=== PATIENT | male | born 1955 | race Hispanic/Latino ===

== ENCOUNTER 2019-05-02 17:33 | Emergency (ER) | payer SELFPAY ==
[~2019-05-02] VITALS: Ht 185.4 cm; Wt 117.9 kg
--- OUTSIDE RECORDS SUMMARY | 2019-05-02 17:35 | XMS REPORT ---
[facility] Address Unknown Phone Unavailable Care Team Providers Care Pet Care Attendant Name Role Phone Unavailable Unavailable Problems This patient has no known problems. Allergies, Adverse Reactions, Alerts This patient has no known allergies or adverse reactions. Medications This patient has no known medications. Encounters Start Date/Time End Date/Time Encounter Type Admission Type Attending [facility] Care Department Encounter ID 2019-02-26 22:29:03 Inpatient [facility] [id number] 2019-02-23 11:49:38 Inpatient [facility] [id number] 2018-10-22 06:24:57 Inpatient [facility] [id number] 2018-10-20 23:13:11 Inpatient [facility] [id number] 2018-10-18 14:36:21 Inpatient [facility] [id number] 2018-10-18 14:00:08 Inpatient [facility] [id number] 2018-10-18 13:24:35 Inpatient [facility] [id number] 2018-10-17 21:58:55 Inpatient [facility] [id number] 2018-10-16 21:47:23 Inpatient [facility] [id number] 2018-05-16 11:37:17 Inpatient [facility] [id number] 2017-10-25 12:58:00 Inpatient [facility] [id number] 2017-10-16 00:26:17 Inpatient [facility] [id number] 2017-10-15 00:00:00 Inpatient [facility] [id number] 2017-10-15 00:00:00 Inpatient [facility] [id number] 2017-10-14 15:57:42 Inpatient [facility] [id number] 2017-10-12 23:29:40 Inpatient [facility] [id number] 2017-10-11 15:54:45 Inpatient [facility] [id number] 2017-10-11 00:12:23 Inpatient [facility] [id number] 2017-10-10 00:14:31 Inpatient [facility] [id number] 2017-10-08 23:16:54 Inpatient [facility] [id number] 2017-10-08 12:09:03 Inpatient [facility] [id number] 2017-10-08 00:00:00 Inpatient [facility] [id number] 2017-10-08 00:00:00 Inpatient [facility] [id number] 2017-10-08 00:00:00 Inpatient [facility] [id number] 2017-10-08 00:00:00 Inpatient [facility] [id number] 2017-02-04 18:16:47 Inpatient [facility] [id number] 2019-05-27 00:00:00 2019-05-27 00:00:00 Outpatient [facility] [id number] 2019-05-01 00:00:00 2019-05-01 00:00:00 Outpatient [facility] [id number] 2019-04-27 00:00:00 2019-04-27 00:00:00 Outpatient [facility] [id number] 2019-04-15 22:30:34 2019-04-15 22:30:34 Emergency [facility] [id number] 2019-04-15 21:48:28 2019-04-15 21:48:28 Emergency [facility] [id number] 2019-04-10 13:35:51 2019-04-10 13:35:51 Outpatient [facility] [id number] 2019-04-03 11:15:37 2019-04-03 11:15:37 Outpatient [facility] [id number] 2019-03-13 00:00:00 2019-03-13 00:00:00 Outpatient [facility] [id number] 2019-03-06 00:00:00 2019-03-06 00:00:00 Outpatient [facility] [id number] 2019-02-21 06:55:17 2019-02-21 06:55:17 Outpatient [facility] [id number] 2019-02-20 15:43:46 2019-02-20 15:43:46 Emergency [facility] [id number] 2019-02-20 13:51:30 2019-02-20 13:51:30 Inpatient [facility] [id number] 2019-01-16 00:00:00 2019-01-16 00:00:00 Outpatient [facility] [id number] 2018-12-10 10:02:40 2018-12-10 10:02:40 Outpatient [facility] [id number] 2018-11-28 00:00:00 2018-11-28 00:00:00 Outpatient [facility] [id number] 2018-11-20 00:00:00 2018-11-20 00:00:00 Outpatient [facility] [id number] 2018-10-16 06:24:32 2018-10-16 06:24:32 Outpatient [facility] [id number] 2018-10-15 19:00:24 2018-10-15 19:00:24 Outpatient [facility] [id number] 2018-10-15 12:40:45 2018-10-15 12:40:45 Emergency [facility] [id number] 2018-10-15 11:11:54 2018-10-15 11:11:54 Inpatient [facility] [id number] 2018-10-07 00:00:00 2018-10-07 00:00:00 Outpatient [facility] [id number] 2018-09-17 00:00:00 2018-09-17 00:00:00 Outpatient [facility] [id number] 2018-08-21 00:00:00 2018-08-21 00:00:00 Outpatient [facility] [id number] 2018-08-12 00:00:00 2018-08-12 00:00:00 Outpatient [facility] [id number] 2018-08-11 15:32:23 2018-08-11 15:32:23 Outpatient [facility] [id number] 2018-08-11 14:57:37 2018-08-11 14:57:37 Outpatient [facility] [id number] 2018-08-11 14:03:16 2018-08-11 14:03:16 Outpatient [facility] [id number] 2018-07-28 00:00:00 2018-07-28 00:00:00 Outpatient [facility] [id number] 2018-07-04 00:00:00 2018-07-04 00:00:00 Outpatient [facility] [id number] 2018-06-20 00:00:00 2018-06-20 00:00:00 Outpatient [facility] [id number] 2018-06-10 21:16:40 2018-06-10 21:16:40 Emergency [facility] [id number] 2018-06-10 19:36:50 2018-06-10 19:36:50 Emergency [facility] [id number] 2018-06-10 17:17:34 2018-06-10 17:17:34 Emergency [facility] [id number] 2018-06-06 00:00:00 2018-06-06 00:00:00 Outpatient [facility] [id number] 2018-06-04 10:19:36 2018-06-04 10:19:36 Outpatient [facility] [id number] 2018-06-04 00:00:00 2018-06-04 00:00:00 Outpatient [facility] [id number] 2018-06-04 00:00:00 2018-06-04 00:00:00 Outpatient [facility] [id number] 2018-05-23 00:00:00 2018-05-23 00:00:00 Outpatient [facility] [id number] 2018-05-22 00:00:00 2018-05-22 00:00:00 Outpatient [facility] [id number] 2018-05-22 00:00:00 2018-05-22 00:00:00 Outpatient [facility] [id number] 2018-05-21 00:00:00 2018-05-21 00:00:00 Outpatient [facility] [id number] 2018-05-19 15:47:45 2018-05-19 15:47:45 Outpatient [facility] [id number] 2018-05-19 00:00:00 2018-05-19 00:00:00 Outpatient [facility] [id number] 2018-05-13 11:52:20 2018-05-13 11:52:20 Emergency [facility] [id number] 2018-05-13 09:38:58 2018-05-13 09:38:58 Inpatient [facility] [id number] 2018-05-06 00:00:00 2018-05-06 00:00:00 Outpatient [facility] [id number] 2018-04-29 07:24:07 2018-04-29 07:24:07 Outpatient [facility] [id number] 2018-04-29 07:24:00 2018-04-29 07:24:00 Outpatient [facility] [id number] 2018-04-28 19:41:10 2018-04-28 19:41:10 Outpatient [facility] [id number] 2018-04-28 18:49:38 2018-04-28 18:49:38 Outpatient [facility] [id number] 2018-04-28 13:48:14 2018-04-28 13:48:14 Outpatient [facility] [id number] 2018-04-08 00:00:00 2018-04-08 00:00:00 Outpatient [facility] [id number] 2018-02-23 05:39:40 2018-02-23 05:39:40 Emergency [facility] [id number] 2018-02-18 11:13:23 2018-02-18 11:13:23 Outpatient [facility] [id number] 2018-01-22 00:00:00 2018-01-22 00:00:00 Outpatient [facility] [id number] 2018-01-21 00:00:00 2018-01-21 00:00:00 Outpatient [facility] [id number] 2018-01-16 11:15:57 2018-01-16 11:15:57 Outpatient [facility] [id number] 2018-01-14 05:57:20 2018-01-14 05:57:20 Outpatient [facility] [id number] 2018-01-13 00:00:00 2018-01-13 00:00:00 Outpatient [facility] [id number] 2018-01-06 08:10:43 2018-01-06 08:10:43 Outpatient [facility] [id number] 2018-01-06 00:00:00 2018-01-06 00:00:00 Outpatient [facility] [id number] 2017-12-31 00:00:00 2017-12-31 00:00:00 Outpatient [facility] [id number] 2017-12-30 00:00:00 2017-12-30 00:00:00 Outpatient [facility] [id number] 2017-12-03 00:00:00 2017-12-03 00:00:00 Outpatient [facility] [id number] 2017-11-27 12:10:48 2017-11-27 12:10:48 Outpatient [facility] [id number] 2017-11-27 08:53:13 2017-11-27 08:53:13 Outpatient [facility] [id number] 2017-11-27 00:00:00 2017-11-27 00:00:00 Outpatient [facility] [id number] 2017-11-21 15:58:16 2017-11-21 15:58:16 Outpatient [facility] [id number] 2017-11-20 10:03:22 2017-11-20 10:03:22 Outpatient [facility] [id number] 2017-11-20 00:00:00 2017-11-20 00:00:00 Outpatient [facility] [id number] 2017-11-15 11:59:47 2017-11-15 11:59:47 Outpatient [facility] [id number] 2017-11-07 16:56:54 2017-11-07 16:56:54 Outpatient [facility] [id number] 2017-11-07 00:00:00 2017-11-07 00:00:00 Outpatient [facility] [id number] 2017-11-01 00:00:00 2017-11-01 00:00:00 Outpatient [facility] [id number] 2017-11-01 00:00:00 2017-11-01 00:00:00 Outpatient [facility] [id number] 2017-10-31 16:36:33 2017-10-31 16:36:33 Outpatient [facility] [id number] 2017-10-25 00:00:00 2017-10-25 00:00:00 Outpatient [facility] [id number] 2017-10-22 07:35:36 2017-10-22 07:35:36 Outpatient [facility] [id number] 2017-10-21 12:27:56 2017-10-21 12:27:56 Emergency [facility] [id number] 2017-10-21 11:36:08 2017-10-21 11:36:08 Inpatient [facility] [id number] 2017-10-15 14:36:11 2017-10-15 00:00:00 Inpatient [facility] [id number] 2017-10-15 01:47:48 2017-10-15 00:00:00 Inpatient [facility] [id number] 2017-10-15 00:00:00 2017-10-15 00:00:00 Outpatient [facility] [id number] 2017-10-15 00:00:00 2017-10-15 00:00:00 Outpatient [facility] [id number] 2017-10-14 10:49:27 2017-10-14 00:00:00 Inpatient [facility] [id number] 2017-10-13 23:17:36 2017-10-13 00:00:00 Inpatient [facility] [id number] 2017-10-13 15:04:28 2017-10-13 00:00:00 Inpatient [facility] [id number] 2017-10-12 00:09:06 2017-10-12 00:00:00 Inpatient [facility] [id number] 2017-10-11 10:01:34 2017-10-11 00:00:00 Inpatient [facility] [id number] 2017-10-10 08:14:44 2017-10-10 00:00:00 [facility]patient [facility] [id number] 2017-10-09 22:10:40 2017-10-09 00:00:00 Inpatient [facility] [id number] 2017-10-09 19:04:36 2017-10-09 00:00:00 Inpatient [facility] [id number] 2017-10-09 12:36:03 2017-10-09 00:00:00 Inpatient [facility] [id number] 2017-10-08 22:57:18 2017-10-08 00:00:00 Inpatient [facility] [id number] 2017-10-08 19:46:28 2017-10-08 00:00:00 Inpatient [facility] [id number] 2017-10-08 19:45:46 2017-10-08 00:00:00 Inpatient [facility] [id number] 2017-10-08 02:22:12 2017-10-08 00:00:00 Inpatient [facility] [id number] 2017-10-07 21:02:12 2017-10-07 21:02:12 Emergency [facility] [id number] 2017-10-07 20:32:47 2017-10-07 20:32:47 Inpatient [facility] [id number] 2017-10-07 12:26:26 2017-10-07 00:00:00 Inpatient [facility] [id number] 2017-10-07 00:00:00 2017-10-07 00:00:00 Outpatient [facility] [id number] 2017-10-01 21:40:36 2017-10-01 21:40:36 Inpatient [facility] [id number] 2017-10-01 13:37:19 2017-10-01 13:37:19 Emergency [facility] [id number] 2017-09-25 00:00:00 2017-09-25 00:00:00 Outpatient [facility] [id number] 2017-09-24 10:03:29 2017-09-24 10:03:29 Outpatient [facility] [id number] 2017-09-24 08:15:26 2017-09-24 08:15:26 Outpatient [facility] [id number] 2017-09-24 00:00:00 2017-09-24 00:00:00 Outpatient [facility] [id number] 2017-09-16 00:00:00 2017-09-16 00:00:00 Outpatient [facility] [id number] 2017-09-16 00:00:00 2017-09-16 00:00:00 Outpatient [facility] [id number] 2017-09-13 18:40:45 2017-09-13 18:40:45 Outpatient [facility] [id number] 2017-09-10 10:14:59 2017-09-10 10:14:59 Outpatient [facility] [id number] 2017-09-08 07:08:53 2017-09-08 00:00:00 Inpatient [facility] [id number] 2017-09-04 15:11:40 2017-09-04 00:00:00 Inpatient [facility] [id number] 2017-09-04 12:43:45 2017-09-04 00:00:00 Inpatient [facility] [id number] 2017-09-03 09:14:45 2017-09-03 09:14:45 Outpatient [facility] [id number] 2017-09-03 07:41:01 2017-09-03 07:41:01 Outpatient [facility] [id number] 2017-09-02 15:54:52 2017-09-02 15:54:52 Emergency [facility] [id number] 2017-09-02 13:35:43 2017-09-02 13:35:43 Inpatient [facility] [id number] 2017-09-02 00:00:00 2017-09-02 00:00:00 Outpatient [facility] [id number] 2017-09-02 00:00:00 2017-09-02 00:00:00 Outpatient [facility] [id number] 2017-08-21 10:30:17 2017-08-21 10:30:17 Emergency [facility] [id number] 2017-08-21 10:13:42 2017-08-21 10:13:42 Emergency [facility] [id number] 2017-08-15 08:35:29 2017-08-15 08:35:29 Outpatient [facility] [id number] 2017-08-06 07:43:47 2017-08-06 07:43:47 Outpatient [facility] [id number] 2017-07-24 09:37:29 2017-07-24 09:37:29 Outpatient [facility] [id number] 2017-07-24 00:00:00 2017-07-24 00:00:00 Outpatient [facility] [id number] 2017-07-14 22:38:43 2017-07-14 22:38:43 Emergency [facility] [id number] 2017-07-14 18:03:48 2017-07-14 18:03:48 Emergency [facility] [id number] 2017-07-14 11:01:17 2017-07-14 11:01:17 Emergency [facility] [id number] 2017-06-06 15:19:43 2017-06-06 15:19:43 Outpatient [facility] [id number] 2017-06-04 09:55:47 2017-06-04 09:55:47 Outpatient [facility] [id number] 2017-05-28 09:52:20 2017-05-28 09:52:20 Outpatient [facility] [id number] 2017-05-22 06:51:03 2017-05-22 06:51:03 Outpatient [facility] [id number] 2017-05-21 09:35:38 2017-05-21 09:35:38 Outpatient [facility] [id number] 2017-05-08 00:00:00 2017-05-08 00:00:00 Outpatient [facility] [id number] 2017-05-02 09:33:32 2017-05-02 09:33:32 Outpatient [facility] [id number] 2017-04-18 09:02:49 2017-04-18 09:02:49 Outpatient [facility] [id number] 2017-04-16 00:00:00 2017-04-16 00:00:00 Outpatient [facility] [id number] 2017-04-11 10:16:12 2017-04-11 10:16:12 Outpatient [facility] [id number] 2017-04-11 08:37:34 2017-04-11 08:37:34 Outpatient [facility] [id number] 2017-04-05 08:19:09 2017-04-05 08:19:09 Outpatient [facility] [id number] 2017-04-02 15:55:12 2017-04-02 00:00:00 Inpatient [facility] [id number] 2017-04-01 13:19:08 2017-04-01 00:00:00 Inpatient [facility] [id number] 2017-04-01 11:48:02 2017-04-01 00:00:00 Inpatient [facility] [id number] 2017-04-01 11:01:30 2017-04-01 00:00:00 Inpatient [facility] [id number] 2017-04-01 00:00:00 2017-04-01 00:00:00 Outpatient [facility] [id number] 2017-04-01 00:00:00 2017-04-01 00:00:00 Outpatient [facility] [id number] 2017-03-30 13:34:58 2017-03-30 13:34:58 Outpatient [facility] [id number] 2017-03-29 11:18:57 2017-03-29 11:18:57 Inpatient [facility] [id number] 2017-03-29 10:34:06 2017-03-29 10:34:06 Emergency [facility] [id number] 2017-03-29 00:00:00 2017-03-29 00:00:00 Emergency [facility] [id number] 2017-03-27 00:00:00 2017-03-27 00:00:00 Outpatient [facility] [id number] 2017-03-20 00:00:00 2017-03-20 00:00:00 Outpatient [facility] [id number] 2017-03-15 01:56:23 2017-03-15 00:00:00 Inpatient [facility] [id number] 2017-03-14 14:07:39 2017-03-14 14:07:39 Emergency [facility] [id number] 2017-03-14 13:35:00 2017-03-14 13:35:00 Inpatient [facility] [id number] 2017-03-07 07:11:27 2017-03-07 07:11:27 Outpatient [facility] [id number] 2016-11-22 07:26:11 2016-11-22 07:26:11 Outpatient [facility] [id number] 2016-11-22 00:00:00 2016-11-22 00:00:00 Outpatient [facility] [id number] 2016-09-12 00:00:00 2016-09-12 00:00:00 Outpatient [facility] [id number] Results Test Description Test Time Test Comments Text Results Atomic Results Result Comments XR Chest 1 View Frontal 2018-11-18 11:17:31 Patient: SHIN HEATH Date/Time11/18/2018 11:12 CSTReason for ExamDifficulty breathingReportEXAM: CHEST ONE VIEWINDICATION: Difficulty breathingCOMPARISON: April 08, 2018TECHNIQUE: AP view of the chest.FINDINGS:The cardiomediastinal silhouette is normal. Mild congestive changes bilaterally. No pneumothorax or pleural effusion is identified. The osseous structures are unremarkable.IMPRESSION:Mild congestive changes bilaterally.LOCATION: R16 Final Dictated by: MD Joe Melanie CDictated DT/TM: 11/18/2018 11:17 amSigned by: MD Joe Melanie CSigned (Electronic Signature): 11/18/2018 11:[address] Brain/Head w/o Contrast 2018-11-18 10:38:47 Patient: SHIN HEATH Date/Time11/18/2018 10:32 CSTReason for ExamHeadache(s)ReportCT HEAD WITHOUT CONTRASTCLINICAL HISTORY: Headache(s)COMPARISON: None available.TECHNIQUE: 5 mm axial images of the brain were obtained without contrast. Coronal and sagittal reformats were obtained. One or more of the following dose reduction techniques were used: Automated exposure control, adjustment of the mA and/or kV according to patient size, and/or utilization of iterative reconstruction technique.FINDINGS: There is no acute intracranial hemorrhage or extra-axial collection. The pak-white matter differentiation is well-preserved without evidence of edema or acute infarct. An old lacunar infarct is seen in the left basal ganglia. There is no hydr ocephalus, midline shift, or mass effect.The cranial vault and skull base are intact. The paranasal sinuses and mastoid air cells are pneumatized and well- aerated.IMPRESSION: No acute intracranial abnormalityLocation: R16 Final Dictated by: MD Burton Adam FDictated DT/TM: 11/18/2018 10:37 amSigned by: MD Burton Adam FSigned (Electronic Signature): 11/18/2018 10:38 am IR Paracentesis 2018-04-10 09:45:52 Patient: SHIN HEATH Date/Time04/09/2018 16:30 CDTReason for ExamMass, abdominalReportULTRASOUND-GUIDED PARACENTESISCLINICAL INFORMATION: Mass, abdominalPROCEDURE IN DETAIL:Following the explanation of risks, benefits and alternative treatment options, informed written consent was obtained. The patient was placed supine on the stretcher and prepped and draped in sterile fashion. 1% Xylocaine was used for local anesthesia. 100 g of intravenous albumin 25% was administered.Under ultrasound guidance, a 5 [employer] catheter needle was advanced into the peritoneal cavity from a right lower quadrant access and through this 10.5 L of yellow fluid were removed. The catheter was removed, and a sterile dressing was applied. The patient tolerated the procedure well and left the radiology department in stable condition.Complications: None immediateIMPRESSION:Successful removal of 10.5 L of ascites without complication. A sample of fluid was sent to the lab for analysis and cytology.LOCATION: R16 Final Dictated by: MD Burton Adam FDictated DT/TM: 04/10/2018 9:44 amSigned by: MD Burton Adam FSigned (Electronic Signature): 04/10/2018 9:[address] Abdomen w/o Contrast 2018-04-09 18:32:23 Patient: SHIN HEATH Date/Time04/09/2018 18:00 CDTReason for ExamAscitesReportCT abdomen without IV contrast.Indication: Ascites.Location: U90Sfgfcagacy: NoneTechnique: CT images of the abdomen were obtained from the diaphragm to the pubic symphysis without the administration of intravenous contrast contrast. Coronal reformats are provided.One or more of the following dose reduction techniques were used: Automated exposure control, adjustment of the mA and/or kV according to patient size, and/or utilization of iterative reconstruction technique. Total DLP: 619.81mGy-cm.Findings:Lungs bases: There are small pleural effusions, right greater than left, with overlying atelectasis. The heart is mildly enlarged.Liver: The liver measures 21 cm in craniocaudal length . Otherwise, the noncontrast appearance is unremarkable.Gallbladder: The gallbladder is filled with intraluminal calculi and demonstrates apparent mild gallbladder wall thickening.Pancreas: Noncontrast appearance is unremarkable.Spleen: Noncontrast appearance is unremarkable.Adrenal glands: Noncontrast appearance is unremarkable.Kidneys: There is a 1.7 cm inferior pole right renal cyst as well as a 5.1 cm inferior pole left renal cyst. There is no hydronephrosis or renal calculi.Bowel: There is no evidence of bowel obstruction. There is no significant and pericolonic inflammation.Peritoneum: There is a small volume of abdominopelvic ascites.Vascular: Note is made of an infrarenal IVC filter. There are mild arterial atherosclerotic calcifications. There is no abdominal aortic aneurysm.Skeletal: There is no acute osseous abnormality. Diffuse, mild subcutaneous edema is present..Impression:1. Small volume of abdominopelvic ascites and small right greater than left pleural effusions. Mild anasarca. Mild cardiomegaly.2. Cholelithiasis. Apparent gallbladder wall thickening, nonspecific, though may be related to the patient's volume overload status. If there is concern for cholecystitis, consider ultrasound or HIDA for further evaluation.3. Hepatomegaly.4. IVC filter. Final Dictated by: MD Blunt Robert KDictated DT/TM: 04/09/2018 6:26 pmSigned by: MD Blunt Robert KSigned (Electronic Signature): 04/09/2018 6:32 pm XR Chest 1 View Frontal 2018-04-08 05:27:53 Patient: SHIN HEATH Date/Time04/08/2018 04:22 CDTReason for ExamCHF (Congestive Heart Failure), knownReportCHEST RADIOGRAPHLOCATION: R16.INDICATION: CHF.COMPARISON: None.TECHNIQUE: Frontal radiograph of the chest.FINDINGS:No focal airspace consolidation or pneumothorax is visualized. The cardiomediastinal silhouette is normal.IMPRESSION:No acute abnormality in the chest. Final Dictated by: MD Henriquez Christopher ADictated DT/TM: 04/08/2018 5:25 amSigned by: MD Henriquez Christopher ASigned (Electronic Signature): 04/08/2018 5:27 am XR Knee 3 Views Right 2018-04-08 05:25:29 Patient: SHIN HEATH Date/Time04/08/2018 04:22 CDTReason for ExamInjuryReportRIGHT KNEE RADIOGRAPHS, 2 VIEWSLOCATION: R16.INDICATION: Injury.COMPARISON: None.TECHNIQUE: AP and lateral radiographs of the right knee.FINDINGS:There is mild lateral subluxation of the knee. The joint spaces are otherwise maintained. No acute fracture is visualized. Soft tissue calcifications are present.IMPRESSION:Mild lateral subluxation of the knee may be acute or chronic in nature. No fracture visualized. Final Dictated by: MD Henriquez Christopher ADictated DT/TM: 04/08/2018 5:22 amSigned by: MD Henriquez Christopher ASigned (Electronic Signature): 04/08/2018 5:25 am XR Tibia/Fibula Left 2018-04-08 05:22:26 Patient: SHIN HEATH Date/Time04/08/2018 04:22 CDTReason for ExamInjuryReportLEFT KNEE RADIOGRAPHS, 2 VIEWS; LEFT TIBIA-FIBULA RADIOGRAPHS, 2 VIEWS; LEFT ANKLE RADIOGRAPHS, 3 VIEWS; LEFT FOOT RADIOGRAPHS, 3 VIEWS.LOCATION: [facility].INDICATION: Injury.COMPARISON: None.TECHNIQUE: AP and lateral radiographs of the left knee; AP and lateral radiographs of the left tibia-fibula; AP, oblique, and lateral radiographs of the left ankle; AP, oblique, and lateral radiographs of the left foot.FINDINGS:There is no acute fracture or dislocation. The joint spaces are maintained. There is a metallic screw in the distal tibia. Soft tissue calcifications are present.IMPRESSION:Left knee: No acute osseous abnormality.Left tibia-fibula: No acute osseous abnormality.Left ankle: No acute osseous abnormality.Left foot: No acute osseous abnormality. Final Dictated by: MD Henriquez Christopher ADictated DT/TM: 04/08/2018 5:17 amSigned by: MD Henriquez Christopher ASigned (Electronic Signature): 04/08/2018 5:22 am XR Ankle 2 Views Left 2018-04-08 05:22:26 Patient: SHIN HEATH Date/Time04/08/2018 04:22 CDTReason for ExamInjuryReportLEFT KNEE RADIOGRAPHS, 2 VIEWS; LEFT TIBIA-FIBULA RADIOGRAPHS, 2 VIEWS; LEFT ANKLE RADIOGRAPHS, 3 VIEWS; LEFT FOOT RADIOGRAPHS, 3 VIEWS.LOCATION: [facility].INDICATION: Injury.COMPARISON: None.TECHNIQUE: AP and lateral radiographs of the left knee; AP and lateral radiographs of the left tibia-fibula; AP, oblique, and lateral radiographs of the left ankle; AP, oblique, and lateral radiographs of the left foot.FINDINGS:There is no acute fracture or dislocation. The joint spaces are maintained. There is a metallic screw in the distal tibia. Soft tissue calcifications are present.IMPRESSION:Left knee: No acute osseous abnormality.Left tibia-fibula: No acute osseous abnormality.Left ankle: No acute osseous abnormality.Left foot: No acute osseous abnormality. Final Dictated by: MD Henriquez Christopher ADictated DT/TM: 04/08/2018 5:17 amSigned by: MD Henriquez Christopher ASigned (Electronic Signature): 04/08/2018 5:22 am XR Foot 2 Views Left 2018-04-08 05:22:26 Patient: SHIN HEATH Date/Time04/08/2018 04:22 CDTReason for ExamInjuryReportLEFT KNEE RADIOGRAPHS, 2 VIEWS; LEFT TIBIA-FIBULA RADIOGRAPHS, 2 VIEWS; LEFT ANKLE RADIOGRAPHS, 3 VIEWS; LEFT FOOT RADIOGRAPHS, 3 VIEWS.LOCATION: [facility].INDICATION: Injury.COMPARISON: None.TECHNIQUE: AP and lateral radiographs of the left knee; AP and lateral radiographs of the left tibia-fibula; AP, oblique, and lateral radiographs of the left ankle; AP, oblique, and lateral radiographs of the left foot.FINDINGS:There is no acute fracture or dislocation. The joint spaces are maintained. There is a metallic screw in the distal tibia. Soft tissue calcifications are present.IMPRESSION:Left knee: No acute osseous abnormality.Left tibia-fibula: No acute osseous abnormality.Left ankle: No acute osseous abnormality.Left foot: No acute osseous abnormality. Final Dictated by: MD Henriquez Christopher ADictated DT/TM: 04/08/2018 5:17 amSigned by: MD Henriquez Christopher ASigned (Electronic Signature): 04/08/2018 5:22 am XR Knee 3 Views Left 2018-04-08 05:22:26 Patient: SHIN HEATH Date/Time04/08/2018 04:22 CDTReason for ExamInjuryReportLEFT KNEE RADIOGRAPHS, 2 VIEWS; LEFT TIBIA-FIBULA RADIOGRAPHS, 2 VIEWS; LEFT ANKLE RADIOGRAPHS, 3 VIEWS; LEFT FOOT RADIOGRAPHS, 3 VIEWS.LOCATION: [facility].INDICATION: Injury.COMPARISON: None.TECHNIQUE: AP and lateral radiographs of the left knee; AP and lateral radiographs of the left tibia-fibula; AP, oblique, and lateral radiographs of the left ankle; AP, oblique, and lateral radiographs of the left foot.FINDINGS:There is no acute fracture or dislocation. The joint spaces are maintained. There is a metallic screw in the distal tibia. Soft tissue calcifications are present.IMPRESSION:Left knee: No acute osseous abnormality.Left tibia-fibula: No acute osseous abnormality.Left ankle: No acute osseous abnormality.Left foot: No acute osseous abnormality. Final Dictated by: MD Henriquez Christopher ADictated DT/TM: 04/08/2018 5:17 amSigned by: MD Henriquez Christopher ASignlorena (Electronic Signature): 04/08/2018 5:22 am
[2019-05-02 19:10] LABS: BASOPHILS % 0.8 % (0.0-1.0); EOSINOPHILS # (AUTO) 0.1 (0.0-0.4); EOSINOPHILS % 2.8 % (0.0-6.0); HEMATOCRIT 37.7 % (38.2-49.6); HEMOGLOBIN 11.3 g/dL (14.0-18.0); LYMPHOCYTES # (AUTO) 0.5 (1.0-3.2); LYMPHOCYTES % 13.5 % (18.0-39.1); MEAN CORPUSCULAR HEMOGLOBIN 22.2 pg (28-32); MEAN CORPUSCULAR VOLUME 73.9 fL (81-99); MONOCYTES # (AUTO) 0.3 (0.2-0.8); MONOCYTES % 9.3 % (4.4-11.3); NEUTROPHILS # (AUTO) 2.6 (2.1-6.9); PLATELET COUNT 265 x10e3/uL (140-360); RED CELL DISTRIBUTION WIDTH 18.8 % (11.7-14.4)
[2019-05-02] MEDS ORDERED: FUROSEMIDE INJ 10 MG/ML 4 ML VIAL IV ONE (19:15)
[2019-05-02 19:19] LABS: INR 1.19; PROTHROMBIN TIME 15.7 seconds (11.9-14.5)
[2019-05-02 19:20] LABS: PARTIAL THROMBOPLASTIN TIME 34.9 seconds (23.8-35.5)
[2019-05-02 19:31] LABS: ALANINE AMINOTRANSFERASE 6 IU/L (0-55); ALBUMIN 3.4 g/dL (3.5-5.0); ALBUMIN/GLOBULIN RATIO 0.9 (0.8-2.0); ALKALINE PHOSPHATASE 154 IU/L (40-150); ANION GAP 15.3 mmol/L (8-16); BLOOD UREA NITROGEN 21 mg/dL (7-26); BUN/CREATININE RATIO 18 (6-25); CALCIUM 8.7 mg/dL (8.4-10.2); CARBON DIOXIDE 23 mmol/L (22-29); CHLORIDE 103 mmol/L (98-107); CREATINE KINASE 120 IU/L (30-200); CREATININE, SERUM 1.16 mg/dL (0.72-1.25); EST GLOMERULAR FILTRATION RATE > 60 ML/MIN (60-); GLUCOSE 118 mg/dL (74-118); POTASSIUM 3.3 mmol/L (3.5-5.1); SODIUM 138 mmol/L (136-145)
--- NOTE | 2019-05-02 19:52 | Diagnostic Imaging Report ---
EXAMINATION: CHEST SINGLE (PORTABLE) COMPARISON: None INDICATION: ^FELL HIP PAIN ^[id number] ^1829 ^Y DISCUSSION: Frontal view of the chest obtained at 1929 hours. HEART AND MEDIASTINUM: The heart is enlarged and contains coronary stents. Central pulmonary vasculature is prominent. LINES: None. LUNGS: There is increased lucency of the upper lung zones suggestive of small airways disease. Patchy airspace opacity in the right midlung field. No interstitial edema. PLEURA: No pleural effusion or pneumothorax. BONES AND SOFT TISSUES: No evidence of displaced fracture. No focal osseous lesion. The soft tissues are normal. IMPRESSION: Cardiomegaly and central vascular prominence, likely pulmonary venous hypertension. Nonspecific opacity in the right midlung field may represent infiltrate, atelectasis, or summation shadow. Signed by: Dr. Edwige Jara MD on 05/02/2019 7:49 PM
--- NOTE | 2019-05-02 19:54 | Diagnostic Imaging Report ---
Hip complete Indication: ^FELL HIP PAIN ^Y Technique: AP and frogleg views of left hip obtained. Comparison: None Findings: Images are compromised due to patient's generous body habitus. Left hip remains properly located. The cortex appears intact throughout. Trochanters appear intact. Minimal spurring evident from the superior acetabulum. Adjacent pubic rami appear intact. Lower lumbar spine was not visualized. Nonspecific calcification over the pubic symphysis measures 13 mm. IMPRESSION: Left hip properly located. No convincing evidence for fracture. Signed by: Dr. Edwige Jara MD on 05/02/2019 7:51 PM
[2019-05-02] MEDS ORDERED: POTASSIUM CHLORIDE 20 MEQ TAB CR PO STA (20:08)
[2019-05-02 21:12] VITALS: BP 117/93
[2019-05-02] MEDS ORDERED: HYDROMORPHONE 1MG/1ML INJ IV PRN (21:15)
== END 2019-05-02 21:24 | disposition home or self-care (01) ==
LOC: ER 17:33
DX: R06.09 Other forms of dyspnea (principal); I50.32 Chronic diastolic (congestive) heart failure
CPT/HCPCS: 36415; 71045; 73502; 80053; 82550; 82553; 83880; 84484; 85025; 85610; 85730; 93005; 99284; J1940